=== PATIENT | male | born 1990 | race Caucasian/White ===

== ENCOUNTER 2023-04-21 10:49 | Emergency (ER) | payer SELFPAY ==
[2023-04-21 10:50] VITALS: BP 133/119; PULSE 82; RESP 14; TEMP 36.2; O2SAT 99; BMI 35.0
--- NOTE | 2023-04-21 11:39 | CT_ITS ---
STUDY: CT ABDOMEN AND PELVIS WITHOUT CONTRAST REASON FOR EXAM: Male, 32 years old. Left flank pain. RADIATION DOSAGE (If Supplied By Facility): CTDIvol = ( 22.59 ) mGy, DLP = ( 1337.46 ) mGycm TECHNIQUE: Transaxial images were obtained from the dome of the diaphragm to the symphysis pubis without oral contrast, and without intravenous contrast. Sagittal and coronal images were reconstructed. Individualized dose optimization techniques were used for this CT. COMPARISON: None. FINDINGS: The visualized lung bases are unremarkable. The visualized portions of the heart are within normal limits. Normal liver. Normal gallbladder and extrahepatic biliary system. Normal spleen. Normal pancreas. Normal bilateral adrenal glands. Normal right kidney. There is a 2 mm nonobstructive calculus in the posterior lower pole calyx of the left kidney. Mild degree of left hydronephrosis due to a 2.7 mm calculus in the midportion of the left ureter. Normal visualized stomach. Normal small intestine. There are scattered colonic diverticula consistent with diverticulosis. The appendix is visualized and appears normal. Normal abdominal aorta. Normal inferior vena cava. Normal retroperitoneum. Normal urinary bladder. Small bilateral inguinal hernias containing fat slightly larger on the right side. Normal osseous structures. CT/Abdomen/Pelvis without Cont IMPRESSION: 2.7 mm calculus in the midportion of the left ureter causing a mild degree of left hydronephrosis. 2 mm nonobstructive calculus in the posterior lower pole calyx of the left kidney. Electronically Signed: Manuel Andre MD at 12:40 EDT ,
[2023-04-21] MEDS: 0.9% Normal Saline 1,000 ML 1000 ML IV (11:59)
[2023-04-21] MEDS: Morphine 4 MG/ML Syringe IV ×2 (11:59→12:57)
[2023-04-21] MEDS: Ondansetron 4 MG/2 ML Vial IV (12:00)
[2023-04-21] MEDS: Ketorolac 30 MG/ML Syringe IV (12:59)
[2023-04-21 13:01] VITALS: BP 137/77; PULSE 68; RESP 18; O2SAT 98
[2023-04-21 13:26] LABS: Bacteria 0 SEEN /hpf (None Seen); Mucous, Urine 0 SEEN /hpf (<or=2+); Squamous Epithelial Cells - UA 0 SEEN /hpf (0-5); White Blood Cells 0 SEEN /hpf (0-5)
[2023-04-21 13:41] LABS: Color, Urine Yellow (Yellow); Glucose, Dipstick Normal (Normal); Leukocyte Esterase-Dipstick Negative /ul (Negative); Nitrite-Dipstick Negative (Negative); Occult Blood-Urine 150 /ul (Negative); Protein-Dipstick 15 mg/dl (Negative); Urine Bilirubin Dipstick Negative (Negative); Urine Clarity Sl. Cloudy (Clear); Urine Urobilinogen Normal (Normal)
[2023-04-21 13:42] LABS: Ketone-Dipstick 150 mg/dl (Negative)
[2023-04-21 13:53] LABS: Red Blood Cells-Urine 10-25 SEEN /hpf (0-5)
[2023-04-21 15:05] VITALS: RESP 16
--- NOTE | 2023-04-21 16:57 | EDS_ITS ---
HPI History of Present Illness Chief Complaint: Flank Pain Informant: patient Onset/Context/Timing Onset: Today Context: Gradual Onset Timing: Continuous Quality: Cramping Location: Left flank Worsened by: Nothing Relieved by: Leaning back Narrative Narrative: Patient presents with left flank pain that began today. Patient states pain came on rather gradually. Patient describes the pain as cramping. Patient states the pain is over the left flank area. Patient states it is better whenever he leans back. Patient states nothing makes it worse. Patient states the pain feels similar to prior kidney stone. Patient denies any dysuria, hematuria, or frequency. Patient states he did break out into a sweat when the pain began. Patient denies any fevers or chills however. [facility] Medical History (Updated 04/21/23 @ 16:[address] Edgard Robert DO) GERD (gastroesophageal reflux disease) Home Medications hydrocodone-acetaminophen 5-325mg 5mg-325mg 1 tab PO Q6H PRN PRN Pain 3 days #10 TABLETS 04/21/23 [Rx Last Taken Unknown] Allergy/AdvReac Type Severity Reaction Status Date / Time Penicillins Allergy Severe Vomiting Verified 04/21/23 10:52 codeine AdvReac Mild Vomiting Verified 04/21/23 10:52 no surgical history Social History Smoking Status: Never smoker ROS ROS ED Constitutional Constitutional ED: Denies chills or fever(s) Eyes Eyes: Denies blurry vision or change in vision ENT ENT ED: Denies rhinorrhea or sore throat Cardiovascular Cardiovascular: Denies chest pain or palpitations Respiratory/Chest Respiratory/Chest: Denies cough or dyspnea Gastrointestinal Gastrointestinal: Reports abdominal pain and nausea; Denies vomiting Genitourinary Genitourinary ED: Denies dysuria or hematuria Musculoskeletal Musculoskeletal: Denies back pain or neck pain Integumentary Denies abscess or rash Neurologic Neurologic: Denies headache(s) or weakness Allergic/Immunologic Allergic/Immunologic ED: Denies mouth swelling or urticaria EXAM Physical Exam Const Vital Signs: 04/21/23 10:50 04/21/23 13:01 04/21/23 15:05 Temperature 97.2 F L Temperature Source Temporal Pulse Rate 82 68 Respiratory Rate 14 18 16 Blood Pressure 133/119 H 137/77 H Blood Pressure Mean 123 97 Pulse Ox 99 98 Oxygen Delivery Method Room Air Room Air Positive well nourished and well developed General Appearance ED: well developed and NAD HEENT Reports moist mucous membranes Neck supple and no JVD Resp normal respiratory effort and clear to auscultation bilaterally Cardio regular rate and regular rhythm GI Palpation: soft and tender LLQ (Mild); Negative for guarding or rebound tenderness present Back/Spine General Back: CVA tenderness left Extremity normal to inspection Neuro oriented x3, CN's II-XII intact bilaterally and no sensory deficits noted Psych mental status grossly normal MDM MDM MDM Narrative Medical decision making narrative: Differential diagnosis includes ureteral calculus, urinary tract infection, pyelonephritis, bowel obstruction, and perforation. CT scan of the abdomen pelvis will be obtained to assess for ureteral calculus, bowel obstruction, and perforation. Urinalysis will be obtained to assess for urinary tract infection and pyelonephritis. Patient states he does not have health insurance and wants to keep costs at a minimum. Patient does not want any unnecessary blood work. Because of this, CBC and basic metabolic profile were not obtained. Lab Data Attestation: I reviewed the patient's lab results. Lab results narrative: Urinalysis was reviewed. There is occult blood of 150 with 10-25 red blood cells. There is no evidence of urinary tract infection. Labs: Laboratory Results - last 24 hr 04/21/23 13:17 Urine Color Yellow Urine Clarity Sl. Cloudy Urine pH 7.0 Ur Specific [place] 1.020 Urine Protein 15 H Urine Glucose (UA) Normal Urine Ketones 150 A* Urine Occult Blood 150 H Urine Nitrite Negative Urine Bilirubin Negative Urine Urobilinogen Normal Ur Leukocyte Esterase Negative Urine RBC 10-25 SEEN Urine WBC 0 SEEN Ur Squamous Epith Cells 0 SEEN Urine Bacteria 0 SEEN Urine Mucus 0 SEEN Radiography Diagnostic Testing: Clinical Impression(s) from Imaging Studies Abdomen/Pelvis CT 04/21/23 11:39 IMPRESSION: 2.7 mm calculus in the midportion of the left ureter causing a mild degree of left hydronephrosis. 2 mm nonobstructive calculus in the posterior lower pole calyx of the left kidney. Electronically Signed: Manuel Andre MD at 12:40 EDT , CT scan of the abdomen pelvis was obtained. There is a 2.7 mm calculus in the midportion of the left ureter causing mild left hydronephrosis. There is a 2 mm nonobstructive calculus in the posterior pole of the left kidney this was interpreted by the radiologist and was also independently reviewed by myself. Treatment and Re-Evaluation :: Patient was given IV fluids, morphine, and Zofran. Patient was still having pain after this. Patient was given a repeat dose of morphine and a dose of Toradol. Patient felt better after this. Patient states his pain is completely resolved. Patient was advised of his findings. Patient was advised that his stone should pass on its own. Patient was given a referral for urology. Patient was given a prescription for a short course of [place]. Patient was advised that he could take ibuprofen with this. Patient was instructed to return if worse in any way. Patient understood and was agreeable with the plan. All questions were answered. Discharge Plan Triage Chief Complaint: Flank Pain ED Provider: Edgard Robert Dx/Rx/DC Orders Clinical Impression: Calculus of left ureter Instructions: ED Kidney Stone w/ Colic Prescriptions: New hydrocodone-acetaminophen [hydrocodone-acetaminophen] 5-325 mg tablet 1 tab PO Q6H PRN PRN (Reason: Pain) 3 Days Qty: 10 0RF Primary Care Provider: Care Physician,No Primary Referrals: Darin Sanchez MD [Med Staff - Active Staff] - 5-7 Days Care Physician,No Primary [Primary Care Provider] - Disposition Disposition: Home, Self Care Discharge Date/Time: 04/21/23 15:13
== END 2023-04-21 15:13 | disposition home or self-care (01) ==
PROVIDERS: Emergency Provider Emergency Medicine; Visit Provider Emergency Medicine
DX: N13.2 Hydronephrosis with renal and ureteral calculous obstruction (principal)
CPT/HCPCS: 74176; 81001; 96361; 96374; 96375; 96376; 99282; J7030; A4216; J2405